=== PATIENT | male | born 1995 | race African-American/Black ===

== ENCOUNTER 2018-08-26 20:33 | Emergency (ER) | payer OTHER ==
[2018-08-26] MEDS: IBUPROFEN 800 MG TAB PO (22:45)
== END 2018-08-27 00:15 | disposition home or self-care (01) ==
LOC: FTE 08-27 00:15
DX: S89.91XA Unspecified injury of right lower leg, initial encounter (principal); X58.XXXA Exposure to other specified factors, initial encounter; Y92.9 Unspecified place or not applicable
CPT/HCPCS: 73562; 99283-25